=== PATIENT | female | born 1955 | race Caucasian/White ===

== ENCOUNTER 2017-08-21 15:43 | Emergency (ER) | payer OTHER ==
[~2017-08-21] VITALS: Ht 160 cm; Wt 93.0 kg
[2017-08-21] MEDS ORDERED: SYNTHROID137 MCG (16:04)
[2017-08-21] MEDS ORDERED: CLONAZEPAM0.5 M1 (16:05)
[2017-08-21] MEDS ORDERED: TEGRETOL200 MG (16:05)
== END 2017-08-21 21:39 | disposition home or self-care (01) ==
LOC: ER 15:43
DX: R10.84 Generalized abdominal pain (principal)

== ENCOUNTER 2017-10-03 10:00 | Outpatient (CLI) | payer OTHER ==
[~2017-10-03 10:00] MED LIST: CLONAZEPAM0.5 M1; SYNTHROID137 MCG; TEGRETOL200 MG
== END 2017-10-03 10:03 | disposition home or self-care (01) ==
LOC: RAD 10:00
DX: C19 Malignant neoplasm of rectosigmoid junction (principal); R59.0 Localized enlarged lymph nodes; R19.4 Change in bowel habit; R14.0 Abdominal distension (gaseous)

== ENCOUNTER 2017-10-05 14:15 | Inpatient (IN) | payer OTHER ==
[~2017-10-05] VITALS: Ht 160 cm; Wt 89.8 kg
[2017-10-11] MEDS ORDERED: DOLOGESIC-DF 51 EACH PO (11:04)
[2017-10-11] MEDS ORDERED: INTESTINEX680 M1 PO (11:04)
== END 2017-10-11 13:42 | disposition home or self-care (01) | DRG 331 ==
LOC: O/R 10-06 09:33 → SURH 10-06 09:33 → SURG 10-06 14:15 → SURH 10-06 20:12
PROVIDERS: Surgery
PROC: 07TC4ZZ Resection of Pelvis Lymphatic, Percutaneous Endoscopic Approach (ICD-10-PCS; 2017-10-06)
PROC: 0DTP4ZZ Resection of Rectum, Percutaneous Endoscopic Approach (ICD-10-PCS; 2017-10-06)
PROC: 0DJD8ZZ Inspection of Lower Intestinal Tract, Via Natural or Artificial Opening Endoscopic (ICD-10-PCS; 2017-10-06)
PROC: 0DTN4ZZ Resection of Sigmoid Colon, Percutaneous Endoscopic Approach (ICD-10-PCS; principal; 2017-10-06 16:30)
PROC: 3E0F7GC Introduction of Other Therapeutic Substance into Respiratory Tract, Via Natural or Artificial Opening (ICD-10-PCS; 2017-10-08)
DX: C19 Malignant neoplasm of rectosigmoid junction (principal); R05 Cough; R09.89 Other specified symptoms and signs involving the circulatory and respiratory systems

== ENCOUNTER 2018-07-03 13:07 | Inpatient (IN) | payer OTHER ==
[~2018-07-03 13:07] MED LIST changes: +DOLOGESIC-DF 51 EACH PO; +INTESTINEX680 M1 PO
--- NOTE | 2018-07-03 13:34 | NUR ---
SE RECIBE PTE. FEMENINA ALERTA CONCIENTE Y ORIENTADA QUE REFIERE DOLOR ABDOMINAL MARY JO CON IRRADIACION A ESPALDA QUE LE COMENZO ANOCHE VOMITOS X5
--- NOTE | 2018-07-03 14:37 | NUR ---
SE ORIENTA PTE SOBRE TX MEDICO EL CUAL REFIERE ENTENDER.SE LE EXTRAEN MUESTRAS,SE CANALIZA Y SE ADMINISTRA MEDICAMENTO CRYSTAL ORDEN MEDICA.
--- NOTE | 2018-07-04 07:03 | NUR ---
SE RECIBE PTE ALERTA Y ORIENTADA EN TIEMPO, LUGAR Y PERSONA. GERARD DE DOLOR Y CON S/V ESTABLES. CANALIZADA EN PERIFERAL DERECHA CON ANGIO #20 PATENTE, GERARD DE EDEMA Y ERITEMA BAJANDO D5W/.45 % @ 100ML/HR. PTE PENDIENTE A CONSULTA CON DR. FLOWERS.
[2018-07-09] MEDS ORDERED: TRAMADOL HCL50 MG PO (10:38)
== END 2018-07-09 11:59 | disposition home or self-care (01) | DRG 418 ==
LOC: ER 13:07 → MEDJ 07-04 12:03
PROVIDERS: Surgery; ADMIT Internal Medicine
PROC: BF37ZZZ Magnetic Resonance Imaging (MRI) of Pancreas (ICD-10-PCS; 2018-07-04)
PROC: 0FT44ZZ Resection of Gallbladder, Percutaneous Endoscopic Approach (ICD-10-PCS; principal; 2018-07-06 07:00)
DX: K80.10 Calculus of gallbladder with chronic cholecystitis without obstruction (principal); C19 Malignant neoplasm of rectosigmoid junction

== ENCOUNTER 2018-07-12 19:50 | Emergency (ER) | payer OTHER ==
[~2018-07-12] VITALS: Ht 160 cm; Wt 90.7 kg
[~2018-07-12 19:50] MED LIST changes: +TRAMADOL HCL50 MG PO
[2018-07-12] MEDS ORDERED: TUSSIONEX PENN115 ML PO (20:06)
[2018-07-12] MEDS ORDERED: ALBUTEROL0.63 MG/3 IH (20:06)
== END 2018-07-12 22:54 | disposition home or self-care (01) ==
LOC: ER 19:50
DX: J09.X2 Influenza due to identified novel influenza A virus with other respiratory manifestations (principal); K59.09 Other constipation; R50.9 Fever, unspecified; Z98.890 Other specified postprocedural states

== ENCOUNTER 2019-04-14 18:18 | Emergency (ER) | payer OTHER ==
[~2019-04-14] VITALS: Ht 152.4 cm; Wt 97.5 kg
[~2019-04-14 18:18] MED LIST changes: +ALBUTEROL0.63 MG/3 IH; +TUSSIONEX PENN115 ML PO
== END 2019-04-14 22:41 | disposition home or self-care (01) ==
LOC: ER 18:18
DX: R10.13 Epigastric pain (principal)

== ENCOUNTER 2019-05-20 15:24 | Inpatient (IN) | payer OTHER ==
[~2019-05-20] VITALS: Ht 160 cm; Wt 93.0 kg
[~2019-05-20 15:24] MED LIST changes: -CLONAZEPAM0.5 M1; +CLONAZEPAM0.5 M1 PO; -SYNTHROID137 MCG; +SYNTHROID137 MCG PO
[2019-05-20] MEDS ORDERED: ZANTAC 7575 MG (15:44)
--- NOTE | 2019-05-20 15:46 | NUR ---
SE RECIBE PACIENTE QUE REFIERE DOLRO ABDOMINAL Y VOMITOS DESDE ANOCHE. PACIENTE MUESTRA DESBALANCE Y CICATRICES EN LA EYAD DEBIDO A UN PROCEDIMIENTO PARA TRATAR CANCER DE PIEL.
--- NOTE | 2019-05-20 16:01 | NUR ---
PTE ALERTA Y ORIENTADA X3, SE LE BING MUESTRAS DE LAB. CRSYTAL ORDEN MEDICA BAJO MEDIDAS ASEPTICAS.SE CANALIZA AREA GERARD DE EDEMA Y DE ENROJECIMIENTO. SE LE ADMINISTRAN MEDICAMENTOS CRYSTAL ORDEN MEDICA Y SE EDUCA SOBRE TRATAMIENTO MEDICO.
--- NOTE | 2019-05-20 23:28 | NUR ---
SE RECIBE FEMINA ALERTA Y ORIENTADA POR KIERA ESFERAS EN CAMA CON BARANDAS SEGURAS Y ELEVADAS. AREA DE VENOPUNCION GERARD DE EDEMA O ENROJECIMIENTO. TNG EN FOSA NASAL DERECHA PATENTE CONECTADA A SUCCION INTERMITENTE. DRENANDO RESIDUAL GASTRICO COLOR AMARILLO OSCURO. SE MANTIENE EN OBSERVACION POR CAMBIOS.
--- NOTE | 2019-05-21 07:50 | NUR ---
PACIENTE ALERTA Y ORIENTADA EN TIZ KIERA ESFERAS, PRESENTA BUEN PATRON RESPIRATORIO Y GERARD DE DOLOR. CANALIZADA EN SHAY RT PATENTE Y GERARD DE S/S DE FLEBITIS E INFILTRACION, RECIBIENDO 0.9% NSS A 120 ML/HR. PACIENTE CON SONDA NASOGASTRICA EN FOSA NASAL RT CONECTADA A SUCCION INTERMITENTE BAJA DRENANDO CONTENIDO GASTRICO COLOR REBECA. PENDIENTE EVALUACION DE COLORECTAL DR Joceline ARMSTRONG POR HERNIA ENCARCELADA.
--- NOTE | 2019-05-21 15:08 | NUR ---
SE RECIBE PTE ALERTA Y ORIENTADA POR 3 EN CAMA CON BARANDAS ELEVADA Y TIMBRE ACCESIBLE NO PRESENTADO DOLOR AL MOMENTO, SE OBSERVA VENOPUNCION PATENTE Y GERARD DE EDEMA PTE CON NGT EN ORIFICIO DERECHO DE LA NARIZ COM SUCCION INTERMITENTE PTE EN ESPERA DEL IVANNA CHILDRESS. PTE SE MANTIENE EN OBSERVACION Y BAJO TRATAMIENTO.
[2019-05-24] MEDS ORDERED: PEPCID AC20 MG PO (15:16)
[2019-06-01] MEDS ORDERED: ULTRACET PO (15:04)
== END 2019-06-01 15:56 | disposition home or self-care (01) | DRG 355 ==
LOC: ER 15:24 → SURH 05-21 19:20
PROVIDERS: Surgery; ADMIT Surgery
PROC: 0WUF4JZ Supplement Abdominal Wall with Synthetic Substitute, Percutaneous Endoscopic Approach (ICD-10-PCS; principal; 2019-05-25 16:00)
DX: K43.0 Incisional hernia with obstruction, without gangrene (principal); E03.8 Other specified hypothyroidism; I10 Essential (primary) hypertension; E86.0 Dehydration; E87.8 Other disorders of electrolyte and fluid balance, not elsewhere classified; Z85.038 Personal history of other malignant neoplasm of large intestine; Z08 Encounter for follow-up examination after completed treatment for malignant neoplasm